=== PATIENT | male | born 1995 | race American Indian/Alaskan Native ===

== ENCOUNTER 2017-11-05 16:19 | Emergency (ER) | payer OTHER ==
[2017-11-05] MEDS ORDERED: NACL 0.9% 1000 ML 1,000 ML IV ONE ×2 (16:38→18:31)
[2017-11-05 17:28] LABS: Basophils % (Auto) 0.1 % (0.0-1.8); Eosinophils # (Auto) 0.2 K/mm3 (0.0-0.4); Eosinophils % (Auto) 1.3 % (0.0-4.3); Hematocrit 34.3 % (35.5-45.6); Hemoglobin 10.5 gm/dl (11.8-15.2); Lymphocytes # (Auto) 2.2 K/mm3 (1.2-5.4); Lymphocytes % (Auto) 15.2 % (13.4-35.0); Mean Corpuscular HGB Conc 31 % (32-34); Monocytes # (Auto) 1.8 K/mm3 (0.0-0.8); Monocytes % (Auto) 12.7 % (0.0-7.3); Platelet Count 626 K/mm3 (140-440); Red Blood Count 5.12 M/mm3 (3.65-5.03); Red Cell Distribution Width 17.4 % (13.2-15.2)
[2017-11-05 17:34] LABS: Alanine Aminotransferase 19 units/L (7-56); Albumin 4.1 g/dL (3.9-5); BUN/Creatinine Ratio 7; Blood Urea Nitrogen 8 mg/dL (9-20); Calcium 9.9 mg/dL (8.4-10.2); Hemolysis Index 4; Lipase 14 units/L (13-60)
[2017-11-05 17:36] LABS: Mean Corpuscular Hemoglobin 21 pg (28-32); Mean Corpuscular Volume 67 fl (84-94)
[2017-11-05 17:37] LABS: INR 0.95 (0.87-1.13)
[2017-11-05 17:38] LABS: Partial Thromboplastin Time 32.6 Sec. (24.2-36.6)
[2017-11-05] MEDS ORDERED: ZOFRAN IV ONE (18:31)
[2017-11-05] MEDS ORDERED: MORPHINE IV ONE (18:31)
--- NOTE | 2017-11-05 18:53 | Emergency Department Report ---
HPI - General Chief Complaint: GI Bleed Time Seen by Provider: 11/05/17 17:29 - HPI HPI: Room 7 The patient is a 22-year-old male presenting with chief complaint of abdominal pain and hematochezia. The patient states for 8 months he has had a approximately 15 stools daily the patient states for the past 6-8 months he has had constant midepigastric abdominal pain but it increased over the past 3 days. The patient states lost approximately 70 pounds in the past 4-5 months. The patient states he seen his primary doctor but has never seen a lime mixer tender for the above symptoms. Patient states his primary doctor diagnosed with irritable bowel syndrome. Patient denies nausea vomiting or fever. Patient gives his pain a score of 6/10 Location: Gastrointestinal system Duration: [See above] Quality: Tightness Severity: 6/10 Modifying factors: [see above] Context: [see above] Mode of transportation: [not driving] ED Past Medical Hx - Past Medical History Previous Medical History?: Yes Additional medical history: Blood in stools - Surgical History Past Surgical History?: No - Family History Family history: no significant - Social History Smoking Status: Never Smoker Substance Use Type: None (denies illicit drug use), Alcohol (rarely), Non Opiate Pain, Other - Medications Home Medications: Home Medications Medication Instructions Recorded Confirmed Last Taken Type Ciprofloxacin HCl [Ciprofloxacin 500 mg PO Q12HR #14 tab 11/05/17 Unknown Rx TAB] Diphenoxylate/Atropine [Lomotil] 2 tab PO QID PRN #30 tablet 11/05/17 Unknown Rx HYDROcodone/APAP 5-325 [[place] 1 - 2 each PO Q6HR PRN #14 tablet 11/05/17 Unknown Rx 5/325] metroNIDAZOLE [Flagyl] 500 mg PO Q8HR #21 tablet 11/05/17 Unknown Rx ED Review of Systems ROS: Stated complaint: BLOODY STOOLS Other details as noted in HPI Constitutional: other (weight loss). denies: fever Gastrointestinal: abdominal pain, hematochezia. denies: nausea, vomiting Physical Exam - Physical Exam Vital Signs: Vital Signs 11/05/17 16:34 Temperature 99.6 F Pulse Rate 120 H Respiratory 22 Rate Blood Pressure 130/63 O2 Sat by Pulse 99 Oximetry Physical Exam: GENERAL: The patient is well-developed well-nourished male lying on stretcher not appearing to be in acute distress. [] HEENT: Normocephalic. Atraumatic. Extraocular motions are intact. Patient has moist mucous membranes. NECK: Supple. Trachea midline CHEST/LUNGS: Clear to auscultation. There is no respiratory distress noted. HEART/CARDIOVASCULAR: Regular. There is no tachycardia. There is no gallop rub or murmur. ABDOMEN: Abdomen is soft, with tenderness to palpation in bilateral lower quadrants. Patient has normal bowel sounds. There is no abdominal distention. SKIN: There is no rash. There is no edema. There is no diaphoresis. NEURO: The patient is awake, alert, and oriented. The patient is cooperative. The patient has normal speech MUSCULOSKELETAL: There is no evidence of acute injury. ED Course Vital Signs 11/05/17 16:34 Temperature 99.6 F Pulse Rate 120 H Respiratory 22 Rate Blood Pressure 130/63 O2 Sat by Pulse 99 Oximetry Laboratory Tests 11/05/17 11/05/17 11/05/17 Unknown Unknown Unknown WBC 14.3 H RBC 5.12 H Hgb 10.5 L Hct 34.3 L MCV 67 L MCH 21 L MCHC 31 L RDW 17.4 H Plt Count 626 H Lymph % (Auto) 15.2 Gibson % (Auto) 12.7 H Eos % (Auto) 1.3 Baso % (Auto) 0.1 Lymph # 2.2 Gibson # 1.8 H Eos # 0.2 Baso # 0.0 Seg Neutrophils % 70.7 H Seg Neutrophils # 10.1 H PT 13.1 INR 0.95 APTT 32.6 Sodium 135 L Potassium 4.5 Chloride 93.5 L Carbon Dioxide 25 Anion Gap 21 BUN 8 L Creatinine 1.2 Estimated GFR > 60 BUN/Creatinine Ratio 7 Glucose 99 Calcium 9.9 Total Bilirubin 0.30 AST 21 ALT 19 Alkaline Phosphatase 107 Total Protein 8.1 Albumin 4.1 Albumin/Globulin Ratio 1.0 Lipase 14 Blood Type Antibody Screen 11/05/17 Unknown WBC RBC Hgb Hct MCV MCH MCHC RDW Plt Count Lymph % (Auto) Gibson % (Auto) Eos % (Auto) Baso % (Auto) Lymph # Gibson # Eos # Baso # Seg Neutrophils % Seg Neutrophils # PT INR APTT Sodium Potassium Chloride Carbon Dioxide Anion Gap BUN Creatinine Estimated GFR BUN/Creatinine Ratio Glucose Calcium Total Bilirubin AST ALT Alkaline Phosphatase Total Protein Albumin Albumin/Globulin Ratio Lipase Blood Type O NEGATIVE Antibody Screen Negative - Consultations Consultation #1: 11/05/17 20:17 Gastroenterology paged 11/05/17 20:[address] Quinn-recommends initiating a seven-day course of ciprofloxacin and Flagyl and follow up in GI clinic within one week for outpatient colonoscopy. Okay to administer Lomotil as well ED Medical Decision Making - Lab Data Result diagrams: 11/05/17 Unknown 11/05/17 Unknown Laboratory Tests 11/05/17 11/05/17 11/05/17 Unknown Unknown Unknown WBC 14.3 H RBC 5.12 H Hgb 10.5 L Hct 34.3 L MCV 67 L MCH 21 L MCHC 31 L RDW 17.4 H Plt Count 626 H Lymph % (Auto) 15.2 Gibson % (Auto) 12.7 H Eos % (Auto) 1.3 Baso % (Auto) 0.1 Lymph # 2.2 Gibson # 1.8 H Eos # 0.2 Baso # 0.0 Seg Neutrophils % 70.7 H Seg Neutrophils # 10.1 H PT 13.1 INR 0.95 APTT 32.6 Sodium 135 L Potassium 4.5 Chloride 93.5 L Carbon Dioxide 25 Anion Gap 21 BUN 8 L Creatinine 1.2 Estimated GFR > 60 BUN/Creatinine Ratio 7 Glucose 99 Calcium 9.9 Total Bilirubin 0.30 AST 21 ALT 19 Alkaline Phosphatase 107 Total Protein 8.1 Albumin 4.1 Albumin/Globulin Ratio 1.0 Lipase 14 Blood Type Antibody Screen 11/05/17 Unknown WBC RBC Hgb Hct MCV MCH MCHC RDW Plt Count Lymph % (Auto) Gibson % (Auto) Eos % (Auto) Baso % (Auto) Lymph # Gibson # Eos # Baso # Seg Neutrophils % Seg Neutrophils # PT INR APTT Sodium Potassium Chloride Carbon Dioxide Anion Gap BUN Creatinine Estimated GFR BUN/Creatinine Ratio Glucose Calcium Total Bilirubin AST ALT Alkaline Phosphatase Total Protein Albumin Albumin/Globulin Ratio Lipase Blood Type O NEGATIVE Antibody Screen Negative - Radiology Data Radiology results: report reviewed (CT abdomen and pelvis), image reviewed (CT abdomen and pelvis) FINAL REPORT PROCEDURE: CT abdomen and pelvis with contrast. TECHNIQUE: Computerized axial tomography of the abdomen and pelvis was performed after the IV injection of iodinated nonionic contrast. HISTORY: Hematochezia, abdominal pain. COMPARISON: No prior studies are available for comparison. FINDINGS: The lung bases are clear. There are no pleural effusions. The heart size is normal. The liver, pancreas and spleen appear normal. The gallbladder is present. The adrenal glands are not enlarged. Both kidneys appear normal in size and configuration. The abdominal aorta has a normal caliber. There is no retroperitoneal adenopathy. The left side of the colon is decompressed. There may be some bowel wall thickening, but this is difficult to estimate in a collapsed colon. I believe there is a normal appendix present. The bladder, seminal vesicles and prostate appear normal. The regional skeleton appears intact. IMPRESSION: Question bowel wall thickening involving the left side of the colon versus collapsed colon. Otherwise normal study. Transcribed By: MRM Dictated By: DILLAN DU MD Electronically Authenticated By: DILLAN DU MD Signed Date/Time: 11/05/171605 DD/ 05 TD/TT: 11/05/171605 - Differential Diagnosis ulcerative colitis, Crohn's disease, gastric CA, pancreatitis Critical care attestation.: If time is entered above; I have spent that time in minutes in the direct care of this critically ill patient, excluding procedure time. ED Disposition Clinical Impression: Abdominal pain, Frequent stools, Leukocytosis Disposition: DC-01 TO HOME OR SELFCARE Is pt being admited?: No Does the pt Need Aspirin: No Condition: Stable Instructions: Ulcerative Colitis (ED), Crohn Disease (ED) Additional Instructions: Return to the emergency department immediately should you develop worsening symptoms, fever, inability to tolerate food or liquid or any other concerns. Prescriptions: Ciprofloxacin HCl [Ciprofloxacin TAB] 500 mg PO Q12HR #14 tab Diphenoxylate/Atropine [Lomotil] 2 tab PO QID PRN #30 tablet PRN Reason: Diarrhea HYDROcodone/APAP 5-325 [[place] 5/325] 1 - 2 each PO Q6HR PRN #14 tablet PRN Reason: Pain metroNIDAZOLE [Flagyl] 500 mg PO Q8HR #21 tablet Referrals: BRANDY QUINN MD [Staff Physician] - 3-5 Days (Dr. Quinn is a lime mixer tender. Please follow him for further evaluation) Forms: Accompanied Note, Work/School Release Form(ED) Time of Disposition: 20:31
--- NOTE | 2017-11-05 20:10 | Cat Scan Report ---
FINAL REPORT PROCEDURE: CT abdomen and pelvis with contrast. TECHNIQUE: Computerized axial tomography of the abdomen and pelvis was performed after the IV injection of iodinated nonionic contrast. HISTORY: Hematochezia, abdominal pain. COMPARISON: No prior studies are available for comparison. FINDINGS: The lung bases are clear. There are no pleural effusions. The heart size is normal. The liver, pancreas and spleen appear normal. The gallbladder is present. The adrenal glands are not enlarged. Both kidneys appear normal in size and configuration. The abdominal aorta has a normal caliber. There is no retroperitoneal adenopathy. The left side of the colon is decompressed. There may be some bowel wall thickening, but this is difficult to estimate in a collapsed colon. I believe there is a normal appendix present. The bladder, seminal vesicles and prostate appear normal. The regional skeleton appears intact. IMPRESSION: Question bowel wall thickening involving the left side of the colon versus collapsed colon. Otherwise normal study.
[2017-11-05 21:22] VITALS: BP 126/74
== END 2017-11-05 21:17 | disposition home or self-care (01) ==
LOC: ED 16:19
DX: R10.31 Right lower quadrant pain (principal); R10.32 Left lower quadrant pain; R10.13 Epigastric pain; K92.1 Melena; D72.829 Elevated white blood cell count, unspecified; R63.4 Abnormal weight loss
CPT/HCPCS: 36415; 74177; 80053; 83690; 85025; 85610; 85730; 86850; 86900; 86901; 93005; 93010; 96361; 96374; 96375; 99284; J2270; J2405; J7030; Q9967

== ENCOUNTER 2017-12-03 21:10 | Emergency (ER) | payer OTHER ==
[2017-12-04] MEDS ORDERED: TORADOL IM ONE (03:57)
--- NOTE | 2017-12-04 04:38 | XRay Report ---
FINAL REPORT PROCEDURE: XR FEMUR 2+V LT TECHNIQUE: LEFT femur radiographs, AP and lateral views. HISTORY: Pain in left thigh COMPARISON: No prior studies are available for comparison. FINDINGS: Fracture (s) and/or Dislocation(s): None . Joint space(s): Normal . Soft tissues: Normal . Bone mineralization: Normal . Foreign bodies: None . IMPRESSION: Normal Examination
--- NOTE | 2017-12-04 04:39 | Emergency Department Report ---
ED Lower Extremity HPI - General Chief Complaint: Pain General Stated Complaint: MUSCLE SPASMS Time Seen by Provider: 12/04/17 03:39 Source: patient Mode of arrival: Ambulatory Limitations: No Limitations - History of Present Illness Initial Comments: This is a 22-year-old male nontoxic, well nourished in appearance, no acute signs of distress presents to the ED with c/o of acute on chronic left thigh pain. Patient stated the past 3 days pain has increased but currently in the ED patient denies any pain as he stated it subsided. Patient stated that pain is cramping feeling. Patient stated pain is like "charley horse". Patient denies any numbness or tingling. Patient denies any calf pain, calf tenderness. Patient denies any recent travels, long car rides or recent hospital stays. He denies any chest pain, shortness of breath, fever, chills, nausea, vomiting, headache or stiff neck. Patient denies any hemoptysis. Patient denies any drug allergies or significant past medical history. MD Complaint: hip injury -: week(s) (2) Injury: Thigh: Left Severity: mild Severity scale (0 -10): 3 Improves With: nothing Worsens With: nothing Associated Symptoms: ambulatory. denies: snap/pop sensation, swelling, numbness , tingling, unable to bear weight, able to partially bear weight - Related Data Previous Rx's Medication Instructions Recorded Last Taken Type Ciprofloxacin HCl [Ciprofloxacin 500 mg PO Q12HR #14 tab 11/05/17 Unknown Rx TAB] Diphenoxylate/Atropine [Lomotil] 2 tab PO QID PRN #30 tablet 11/05/17 Unknown Rx HYDROcodone/APAP 5-325 [[place] 1 - 2 each PO Q6HR PRN #14 tablet 11/05/17 Unknown Rx 5/325] metroNIDAZOLE [Flagyl] 500 mg PO Q8HR #21 tablet 11/05/17 Unknown Rx Cyclobenzaprine [Flexeril] 10 mg PO QHS PRN #7 tablet 12/04/17 Unknown Rx Ibuprofen [Motrin] 600 mg PO Q8H PRN #30 tablet 12/04/17 Unknown Rx Allergies Allergy/AdvReac Type Severity Reaction Status Date / Time No Known Allergies Allergy Unverified 11/05/17 16:34 ED Review of Systems ROS: Stated complaint: MUSCLE SPASMS Other details as noted in HPI Constitutional: denies: chills, fever Eyes: denies: eye pain, eye discharge, vision change ENT: denies: ear pain, throat pain Respiratory: denies: cough, shortness of breath, wheezing Cardiovascular: denies: chest pain, palpitations Endocrine: no symptoms reported Gastrointestinal: denies: abdominal pain, nausea, diarrhea Genitourinary: denies: urgency, dysuria Musculoskeletal: arthralgia. denies: back pain, joint swelling Skin: denies: rash, lesions Neurological: denies: headache, weakness, paresthesias Psychiatric: denies: anxiety, depression Hematological/Lymphatic: denies: easy bleeding, easy bruising ED Past Medical Hx - Past Medical History Previous Medical History?: Yes Additional medical history: Blood in stools - Surgical History Past Surgical History?: Yes Additional Surgical History: colonoscopy 11/17/17 - Social History Smoking Status: Never Smoker Substance Use Type: None - Medications Home Medications: Home Medications Medication Instructions Recorded Confirmed Last Taken Type Ciprofloxacin HCl [Ciprofloxacin 500 mg PO Q12HR #14 tab 11/05/17 Unknown Rx TAB] Diphenoxylate/Atropine [Lomotil] 2 tab PO QID PRN #30 tablet 11/05/17 Unknown Rx HYDROcodone/APAP 5-325 [[place] 1 - 2 each PO Q6HR PRN #14 tablet 11/05/17 Unknown Rx 5/325] metroNIDAZOLE [Flagyl] 500 mg PO Q8HR #21 tablet 11/05/17 Unknown Rx Cyclobenzaprine [Flexeril] 10 mg PO QHS PRN #7 tablet 12/04/17 Unknown Rx Ibuprofen [Motrin] 600 mg PO Q8H PRN #30 tablet 12/04/17 Unknown Rx ED Physical Exam - General Limitations: No Limitations General appearance: alert, in no apparent distress - Head Head exam: Present: atraumatic, normocephalic - Eye Eye exam: Present: normal appearance Pupils: Present: normal accommodation - ENT ENT exam: Present: normal exam, mucous membranes moist - Neck Neck exam: Present: normal inspection, full ROM. Absent: tenderness, meningismus, lymphadenopathy, thyromegaly - Respiratory Respiratory exam: Present: normal lung sounds bilaterally. Absent: respiratory distress - Cardiovascular Cardiovascular Exam: Present: regular rate, normal rhythm, normal heart sounds. Absent: irregular rhythm, systolic murmur, diastolic murmur, rubs, gallop - GI/Abdominal GI/Abdominal exam: Present: soft, normal bowel sounds. Absent: distended, tenderness, guarding, rebound, rigid, diminished bowel sounds - Rectal Rectal exam: Present: deferred - Extremities Exam Extremities exam: Present: normal inspection, full ROM, normal capillary refill. Absent: tenderness, pedal edema, joint swelling, calf tenderness - Expanded Lower Extremity Exam Left Hip exam: Present: normal inspection, full ROM, external rotation, internal rotation, pelvic stability. Absent: tenderness, swelling, abrasion, laceration , ecchymosis, deformity, crepidus, dislocation, erythema, shortening Upper Leg exam: Present: normal inspection, full ROM. Absent: tenderness, swelling, abrasion, laceration, ecchymosis, deformity Knee exam: Present: normal inspection, full ROM, full knee extension. Absent: tenderness, swelling, abrasion, laceration, ecchymosis, deformity, crepidus, dislocation, erythema, effusion, pain w/ pronation/supination, posterior draw sign, pain/laxity with valgus, pain/laxity with varus Lower Leg exam: Present: normal inspection, full ROM. Absent: tenderness, swelling, abrasion, laceration, ecchymosis, deformity, crepidus, dislocation, erythema, palpable cord, Sherry's sign Ankle exam: Present: normal inspection, full ROM. Absent: tenderness, swelling , abrasion, laceration, ecchymosis, deformity, crepidus, dislocation, erythema, anterior draw sign Foot/Toe exam: Present: normal inspection, full ROM. Absent: tenderness, swelling, abrasion, laceration, ecchymosis, deformity, crepidus, dislocation, erythema, amputation, puncture wound, foreign body, calcaneal tenderness, tenderness at base of 5th metatarsal, nail avulsion, subungual hematoma Neuro vascular tendon exam: Present: no vascular compromise. Absent: pulse deficit, abnormal cap refill, motor deficit, sensory deficit, tendon deficit, extremity cold to touch, pallor, abnormal 2-point discrimination, decreased fine /light touch, foot drop, peroneal nerve deficit, significant pain with passive ROM of distal joint Gait: Positive: observed and normal - Back Exam Back exam: Present: normal inspection, full ROM. Absent: tenderness, CVA tenderness (R), CVA tenderness (L), muscle spasm, paraspinal tenderness, vertebral tenderness, rash noted - Neurological Exam Neurological exam: Present: alert, oriented X3, CN II-XII intact, normal gait, reflexes normal - Psychiatric Psychiatric exam: Present: normal affect, normal mood - Skin Skin exam: Present: warm, dry, intact, normal color. Absent: rash ED Course Vital Signs 12/03/17 12/03/17 22:13 22:38 Temperature 99.4 F Pulse Rate 98 H 110 H Respiratory 22 Rate Blood Pressure 119/66 119/66 O2 Sat by Pulse 100 100 Oximetry - Reevaluation(s) Reevaluation #1: 12/04/17 04:39 Patient is speaking in full sentences with no signs of distress noted. ED Lower Extremity MDM - Medical Decision Making This is a 22-year-old male that presents with muscle spasm of the left thigh. Patient is stable and was examined by me. X-ray has been obtained and dictated by radiologist within normal limits. Patient did receive a Toradol 60 mg IM in the ED which he states that this has been improved and subsided. Patient refused giving any blood. I was not able to r/o potassium level. Patient is discharged with Flexeril and Motrin and was instructed not to operate any machinery while taking Flexeril due to drowsiness. Patient was referred and instructed to Follow-up with a primary care doctor in 3-5 days or if symptoms worsen and continue return to emergency room as soon as possible. Patient signed AMA form. At time of signing AMA, the patient does not seem toxic or ill in appearance. No acute signs of distress noted. Patient agrees to treatment plan of care. No further questions noted by the patient. Critical care attestation.: If time is entered above; I have spent that time in minutes in the direct care of this critically ill patient, excluding procedure time. ED Disposition Clinical Impression: Muscle spasm Disposition: DC-07 LEFT AGAINST MED ADVICE Is pt being admited?: No Does the pt Need Aspirin: No Condition: Stable Instructions: Ibuprofen (By mouth), Cyclobenzaprine (By mouth), Muscle Spasm ( ED) Additional Instructions: Follow-up with a primary care doctor in 3-5 days or if symptoms worsen and continue return to emergency room as soon as possible. Prescriptions: Cyclobenzaprine [Flexeril] 10 mg PO QHS PRN #7 tablet PRN Reason: Muscle Spasm Ibuprofen [Motrin] 600 mg PO Q8H PRN #30 tablet PRN Reason: Pain Referrals: PRIMARY CARE, [Primary Care Provider] - 3-5 Days ORQUIDEA GUILLORY MD [Staff Physician] - 3-5 Days [facility] [Outside] - 3-5 Days [facility] [Outside] - 3-5 Days Forms: Work/School Release Form(ED), AMA Form
[2017-12-04 04:59] VITALS: BP 101/55
== END 2017-12-04 05:00 | disposition left against medical advice (07) ==
LOC: ED 21:10
DX: M62.838 Other muscle spasm (principal)
CPT/HCPCS: 73552; 96372; 99283; J1885